=== PATIENT | female | born 1960 | race Hispanic/Latino ===

== ENCOUNTER 2017-11-02 17:28 | Emergency (ER) | payer MEDICAID ==
[2017-11-02] MEDS ORDERED: Sodium Chloride 0.9% 1,000 ML IV STA (18:07)
--- NOTE | 2017-11-02 18:40 | RAD ---
Date of service: 11/02/2017 HISTORY: ches tpain COMPARISON: 12/13/2009. TECHNIQUE: Chest PA and lateral FINDINGS: LUNGS: No active pulmonary disease. PLEURA: No significant pleural effusion identified. No pneumothorax apparent. CARDIOVASCULAR: No radiographic findings to suggest acute or significant cardiovascular disease. OSSEOUS STRUCTURES: No significant abnormalities. VISUALIZED UPPER ABDOMEN: Normal. OTHER FINDINGS: None. IMPRESSION: No active disease. No significant interval change compared to the prior examination(s).
[2017-11-02 18:44] LABS: BASO # 0.1 K/uL (0.0-0.2); BASO % 1.1 % (0.0-2.0); EOS # 0.1 K/uL (0.0-0.7); EOS % 0.9 % (0.0-4.0); HEMOGLOBIN 14.6 g/dL (12.0-16.0); LYMPH % 33.8 % (20.0-40.0); MEAN CELL VOLUME 93.1 fl (81.0-99.0); MEAN CORPUSCULAR HEMOGLOBIN 31.4 pg (27.0-31.0); MEAN CORPUSCULAR HGB CONC 33.8 g/dL (33.0-37.0); MEAN PLATELET VOLUME 9.2 fl (7.2-11.7); MONO # 0.6 K/uL (0.0-0.8); MONO % 6.4 % (0.0-10.0); NEUT # 5.1 K/uL (1.8-7.0); NEUT % 57.8 % (50.0-75.0); NRBC % 0.1 % (0.0-0.0); RBC 4.63 Mil/uL (3.80-5.20); RED CELL DISTRIBUTION WIDTH 13.6 % (11.5-14.5); WHITE BLOOD COUNT 8.9 K/uL (4.8-10.8)
--- NOTE | 2017-11-02 18:48 | ED PDOC ---
HPI: Chest Pain Time Seen by Provider: 11/02/17 17:50 Chief Complaint (Nursing): Dizziness/Lightheaded Chief Complaint (Provider): Chest Pain History Per: Patient History/Exam Limitations: no limitations Onset/Duration Of Symptoms: Days (x4) Current Symptoms Are (Timing): Still Present Quality: Pressure Additional Complaint(s): 57 y/o female with no significant PMHx presents to the ED for evaluation of left sided chest pain, onset since . Patient describes pain as pressure like and radiates to the left shoulder and left side of the upper back. Pain is associated with shortness of breath. Patient additionally reports of just starting to have headaches and nausea thus prompting today's visit. Denies cough , fever, left upper extremity paresthesia, focal weakness, blurry vision, trouble with speech or gait, vomiting, abdominal pain and taking pain medications. PMD: Dr. Shabazz (Patient states she has not seen PMD for some time due to insurance issues) Past Medical History Reviewed: Historical Data, Nursing Documentation, Vital Signs Vital Signs: Last Vital Signs Temp 97.8 F 11/02/17 21:10 Pulse 69 11/02/17 21:10 Resp 18 11/02/17 21:10 BP 107/67 11/02/17 21:10 Pulse Ox 99 11/02/17 21:10 - Medical History PMH: No Chronic Diseases - Surgical History Surgical History: - Family History Family History: States: Hypertension - Social History Current smoker - smoking cessation education provided: No Alcohol: None Drugs: Denies - Home Medications Home Medications: Ambulatory Orders Medication Instructions Recorded Ibuprofen [Motrin Tab] 600 mg PO Q8 PRN #30 tab 11/02/17 - Allergies Allergies/Adverse Reactions: Allergies Allergy/AdvReac Type Severity Reaction Status Date / Time shrimp Allergy Verified 11/02/17 18:05 Review of Systems ROS Statement: Except As Marked, All Systems Reviewed And Found Negative (as per HPI) Eyes: Negative for: Vision Change Cardiovascular: Positive for: Chest Pain Gastrointestinal: Positive for: Nausea. Negative for: Vomiting, Abdominal Pain Musculoskeletal: Positive for: Shoulder Pain (left), Back Pain (Left sided upper back pain) Neurological: Positive for: Headache. Negative for: Weakness, Change in Speech , Other (trouble with gait) Physical Exam - Reviewed Nursing Documentation Reviewed: Yes Vital Signs Reviewed: Yes - Physical Exam Appears: Positive for: Non-toxic, No Acute Distress Head Exam: Positive for: ATRAUMATIC, NORMOCEPHALIC Skin: Positive for: Warm, Dry Eye Exam: Positive for: EOMI, PERRL ENT: Negative for: Pharyngeal Erythema, Tonsillar Exudate Neck: Positive for: Painless ROM, Supple Cardiovascular/Chest: Positive for: Regular Rate, Rhythm, Chest Non Tender. Negative for: Murmur Respiratory: Positive for: Normal Breath Sounds. Negative for: Wheezing Gastrointestinal/Abdominal: Positive for: Soft. Negative for: Tenderness Back: Positive for: Normal Inspection. Negative for: Decreased ROM Extremity: Positive for: Normal ROM. Negative for: Deformity Lymphatic: Negative for: Adenopathy Neurologic/Psych: Positive for: Alert. Negative for: Motor/Sensory Deficits - Laboratory Results Result Diagrams: 11/02/17 18:39 11/02/17 18:39 - ECG ECG Rhythm: Positive for: Normal QRS, Normal ST Segment, Sinus Rhythm Rate: 81 O2 Sat by Pulse Oximetry: 98 (RA) Pulse Ox Interpretation: Normal Medical Decision Making Medical Decision Making: Time: 1838 Impression: Chest Pain Heart Score = 1 : low risk for MACE, Unlikely cardiac event Differentials include but not limited to Costocondritis, pulmonary embolism, pneumonia, pneumothorax and musculoskeletal strain. Plan: -- EKG -- CMP -- Lact Acid, Plasma -- Lipase -- Troponin I -- ED Urine Dipstick -- ED Urine -- CBC with differentials -- D Dimer -- CXR Two Views -- Sodium Chloride IV 1000 mls/hr -- Tylenol 975 mg PO -- Zofran Inj 4 mg IVP -- Secretary Of State -- IV Insertion Time: 1827 CXR RESULTS FINDINGS: LUNGS: No active pulmonary disease. PLEURA: No significant pleural effusion identified. No pneumothorax apparent. CARDIOVASCULAR: No radiographic findings to suggest acute or significant cardiovascular disease. OSSEOUS STRUCTURES: No significant abnormalities. VISUALIZED UPPER ABDOMEN: Normal. OTHER FINDINGS: None. IMPRESSION: No active disease. No significant interval change compared to the prior examination(s). 7p DDimer elevated. CTA ordered. EXAM: CT Angiography Chest With Intravenous Contrast CLINICAL HISTORY: 57 years old, female; Pain and signs and symptoms; Shortness of breath; Chest pain; Type not specified; Additional info: SOB chest pain elevated ddimer TECHNIQUE: Axial computed tomographic angiography images of the chest with intravenous contrast using pulmonary embolism protocol. All CT scans at this facility use at least one of these dose optimization techniques: automated exposure control; mA and/or kV adjustment per patient size (includes targeted exams where dose is matched to clinical indication); or iterative reconstruction. MIP reconstructed images were created and reviewed. Coronal and sagittal reformatted images were created and reviewed. CONTRAST: 80 mL of [id number] was administered intravenously. COMPARISON: CR - CHEST TWO VIEWS (PA/LAT) 11/02/2017 6:12 PM FINDINGS: Pulmonary arteries: Unremarkable. No pulmonary embolism. Aorta: No acute findings. No thoracic aortic aneurysm. Lungs: Atelectasis posterior lungs. No mass. Pleural space: Unremarkable. No significant effusion. No pneumothorax. Heart: Unremarkable. No cardiomegaly. No significant pericardial effusion. No evidence of RV dysfunction. Thyroid: 1.9 cm right-sided thyroid nodule. Bones/joints: No acute fracture. No dislocation. Soft tissues: Unremarkable. Lymph nodes: Unremarkable. No enlarged lymph nodes. IMPRESSION: No pulmonary embolism. Thank you for allowing us to participate in the care of your patient. Dictated and Authenticated by: Artur Hudson MD 11/02/2017 8:07 PM Eastern Time ([place] & [place]) DW pt findings. Stable for discharge. Scribe Attestation: Documented by Michael Ford acting as a scribe for Marisabel Echeverria MD. Provider Scribe Attestation: All medical record entries made by the Scribe were at my direction and personally dictated by me. I have reviewed the chart and agree that the record accurately reflects my personal performance of the history, physical exam, medical decision making, and the department course for this patient. I have also personally directed, reviewed, and agree with the discharge instructions and disposition. Disposition - Clinical Impression Clinical Impression: Chest pain Counseled Patient/Family Regarding: Studies Performed, Diagnosis - Disposition Referrals: [facility] [Outside] ([facility] Disposition: Routine/Home Disposition Time: 20:16 Condition: STABLE Prescriptions: Ibuprofen [Motrin Tab] 600 mg PO Q8 PRN #30 tab PRN Reason: Pain, Moderate (4-7) Instructions: Chest Pain That Is Not Caused by the Heart (DC) Forms: [facility] ED School/Work Excuse Print Language: YI
[2017-11-02 18:58] LABS: ALBUMIN 4.2 g/dL (3.5-5.0); ALT/SGPT 25 U/L (9-52); AST/SGOT 27 U/L (14-36); BLOOD UREA NITROGEN 17 mg/dl (7-17); CALCIUM 9.8 mg/dL (8.4-10.2); GFR NON-AFRICAN AMERICAN > 60; LIPASE 157 U/L (23-300)
[2017-11-02] MEDS ORDERED: Sodium Chloride 0.9% 50 ML IV ONE (19:29)
[2017-11-02] MEDS ORDERED: Iodixanol 320 MG/ML 100 ML BOTTLE IV ONE (19:29)
[2017-11-02 21:21] VITALS: BP 107/67; RESP 18; TEMP 97.8
--- NOTE | 2017-11-03 09:12 | CARD ---
APPROVED REPORT Date of service: 11/02/2017 <Conclusion> Normal sinus rhythm Normal ECG
--- NOTE | 2017-11-03 10:36 | CT ---
Date of service: 11/02/2017 PROCEDURE: CT Chest with contrast (Pulmonary Angiogram) HISTORY: sob chest pain elevated ddimer COMPARISON: None available. TECHNIQUE: Axial computed tomography images were obtained of the chest in the pulmonary arterial phase of enhancement. Coronal and sagittal reformatted images were created and reviewed. Intravenous contrast dose: Visipaque 320, 80 cc Radiation dose: Total exam DLP = 248.22 mGy-cm. This CT exam was performed using one or more of the following dose reduction techniques: Automated exposure control, adjustment of the mA and/or kV according to patient size, and/or use of iterative reconstruction technique. FINDINGS: PULMONARY ARTERIES: Unremarkable. No pulmonary embolism. AORTA: No acute findings. No thoracic aortic aneurysm. LUNGS: Unremarkable. No nodule, mass or pulmonary consolidation. PLEURAL SPACES: Unremarkable. No effusion or pneumothorax. HEART: Unremarkable. No cardiomegaly. No significant pericardial effusion. LYMPH NODES: No lymphadenopathy. BONES, CHEST WALL: Unremarkable. No fracture or destructive lesion OTHER FINDINGS: 1.9 cm hypodense lesion right thyroid lobe suggests of a nodule or complex cyst. IMPRESSION: 1. No CT evidence to suggest pulmonary embolus. No infiltrate, pleural or pericardial effusion or pneumothorax. No significant lymphadenopathy. 2. Incidental nodular cyst right lobe thyroid gland. Follow-up ultrasound recommended for correlation. Concordant preliminary report from [facility], 11/02/2017.
[2017-11-04 21:35] VITALS: PULSE 81; O2SAT 98
== END 2017-11-02 21:21 | disposition home or self-care (01) ==
LOC: H.ER 17:28
DX: R07.9 Chest pain, unspecified (principal)
CPT/HCPCS: 71046; 71275; 80053; 83605; 83690; 84484; 85025; 85378; 93005; 96374; 99285; J2405; J7030; Q9967